=== PATIENT | female | born 1955 | race Caucasian/White ===

== ENCOUNTER 2018-03-17 20:01 | Emergency (ER) | payer OTHER ==
[~2018-03-17] VITALS: Ht 162.6 cm; Wt 47.6 kg
[2018-03-17] MEDS ORDERED: ACETAMINOPHEN-1 EAC1 ORAL (20:56)
[2018-03-17] MEDS ORDERED: Tylenol #3 tab (300mg/30mg) ORAL ONE (21:00)
[2018-03-17 21:05] VITALS: BP 0/0
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
== END 2018-03-17 21:05 | disposition home or self-care (01) ==
LOC: EDBD 20:01 → EMR 20:47
DX: S00.33XA Contusion of nose, initial encounter (principal); W50.0XXA Accidental hit or strike by another person, initial encounter; Y92.9 Unspecified place or not applicable
CPT/HCPCS: 99283